=== PATIENT | female | born 1970 | race Caucasian/White ===

== ENCOUNTER 2016-11-26 11:41 | Emergency (ER) | payer SELFPAY ==
[2016-11-26] MEDS ORDERED: METOPROLOL 5 MG/5 ML VIAL IVP STA (12:18)
== END 2016-11-26 14:23 | disposition home or self-care (01) ==
DX: R00.0 Tachycardia, unspecified (principal); R23.2 Flushing; D72.819 Decreased white blood cell count, unspecified; R03.0 Elevated blood-pressure reading, without diagnosis of hypertension; F17.200 Nicotine dependence, unspecified, uncomplicated

== ENCOUNTER 2016-12-16 12:34 | Emergency (ER) | payer MEDICAID ==
[2016-12-16] MEDS ORDERED: POTASSIUM BICARB 25 MEQ TABLET PO STA (16:04)
[2016-12-16] MEDS ORDERED: POTASSIUM BICARB 25 MEQ TABLET PO ONE (16:07)
== END 2016-12-16 16:14 | disposition home or self-care (01) ==
DX: R20.2 Paresthesia of skin (principal); F17.200 Nicotine dependence, unspecified, uncomplicated
CPT/HCPCS: 36415; 70551; 80053; 80306; 81003; 83690; 83735; 83880; 84484; 85025; 93005; 93010; 99283; 99284; A9270

== ENCOUNTER 2017-01-01 22:08 | Emergency (ER) | payer MEDICAID | END 2017-01-01 23:00 | disposition left against medical advice (07) | DX: Z53.21 Procedure and treatment not carried out due to patient leaving prior to being seen by health care provider (principal) ==

== ENCOUNTER 2017-05-16 15:53 | Outpatient (CLI) | payer MEDICAID ==
--- NOTE | 2017-05-18 17:03 | Mammography Report ---
DIGITAL SCREENING MAMMOGRAM: 05/16/2017 CLINICAL INDICATION: A 47-year-old for baseline. TECHNIQUE: Routine CC and MLO projections were obtained of the breasts as well as bilateral laterall y exaggerated craniocaudal views. FINDINGS: The breasts demonstrate heterogeneously dense fibroglandular parenchyma bilaterally. No s uspicious masses, clustered microcalcifications, or regions of architectural distortion are identifie d. IMPRESSION: NEGATIVE EXAMINATION. RECOMMENDATION: Routine annual screening unless otherwise clinically indicated. BI-RADS category 1, negative. STANDARD QUALIFYING STATEMENTS 1. This examination was reviewed with the aid of Computer-Aided Detection (CAD). 2. A negative or benign imaging report should not delay biopsy if clinically suspicious findings are present. Consider surgical consultation if warranted. More than 5% of cancers are not identified by i maging. 3. Dense breasts may obscure an underlying neoplasm. JOB #: [id number] EXT JOB #:[id number]
== END 2017-05-16 15:54 | disposition home or self-care (01) ==
LOC: DI.S 15:53
PROVIDERS: ATTEND Nurse Practitioner Family
DX: Z12.31 Encounter for screening mammogram for malignant neoplasm of breast (principal)
CPT/HCPCS: 77067

== ENCOUNTER 2017-05-19 22:13 | Emergency (ER) | payer MEDICAID ==
[2017-05-19 22:37] VITALS: BP 124/82
--- NOTE | 2017-05-19 22:43 | ED Physician Documentation ---
PD HPI MHE - Stated complaint Stated Complaint: MHE - Chief complaint Chief Complaint: MHE - History obtained from History obtained from: Patient - History of Present Illness Primary symptom: Anxiety, Other (alcohol and extra med use this evening). No: Suicidal ideation, Suicide attempt Timing - onset: How many months ago (3-4 months of anxiety, depression, poor sleep, weight loss/poor appetite, and increasing intermittent alcohol use. Denies drug use. She had been to PMD recently, with new meds Rx in the past couple of months. Had labs done and was found to have some elevation of AST/ ALT. PCP called her and asked her to come to office for further labs to evaluate for Hepatitis. Patient got very anxious about that today. She took couple of meds for anxiety that are Rx for her, and also had some alcohol. Family concerned about the interaction of meds and alcohol. Patient did not make any suicidal statements.) Contributing factors: Money, Other (health). No: Substance abuse - drugs Similar symptoms before: Has not had sx before (her mother says there had not been any depresssion/MH problems in the past until just about 3-4 months ago, then with dperession/anxiety, poor appetite, poor sleep, weight loss. Has been to PCP and gotten Rx for antianxiety/antidepressant. Patient is not feeling improved with those.) Recently seen: Clinic Review of Systems Constitutional: denies: Fever, Chills Nose: denies: Rhinorrhea / runny nose, Congestion Throat: denies: Sore throat Cardiac: denies: Chest pain / pressure, Palpitations Respiratory: denies: Dyspnea, Cough GI: denies: Abdominal Pain, Vomiting, Diarrhea, Bloody / black stool : denies: Dysuria, Frequency, Discharge Neurologic: denies: Generalized weakness, Near syncope Endocrine: reports: Weight loss (the past 3-4 months) Immunocompromised: denies: Immunocompromised PD PAST MEDICAL HISTORY - Past Medical History Cardiovascular: None Respiratory: None Neuro: None Endocrine/Autoimmune: None 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: None : None Psych: Anxiety - Past Surgical History Past Surgical History: No - Present Medications Home Medications: Ambulatory Orders Medication Instructions Recorded Confirmed No Known Home Medications [No 11/26/16 01/01/17 Known Home Medications] - Allergies Allergies/Adverse Reactions: Allergies Allergy/AdvReac Type Severity Reaction Status Date / Time No Known Drug Allergies Allergy Verified 05/19/17 22:37 - Living Situation Living Situation: reports: With family Living Arrangement: reports: At home - Social History Does the pt smoke?: Yes Smoking Status: Current every day smoker Does the pt drink ETOH?: Yes Does the pt have substance abuse?: No - Immunizations Immunizations are current?: Yes Immunizations: TDAP current <10years - POLST Patient has POLST: No PD ED PE NORMAL - Vitals Vital signs reviewed: Yes - General General: Alert and oriented X 3, Well developed/nourished, Other (smell of alchol on breath. Able to talk clearly, ambulatory without ataxia. Somewhat loud talking. ) - HEENT HEENT: Atraumatic, Pharynx benign - Neck Neck: Supple, no meningeal sign, No adenopathy - Cardiac Cardiac: RRR, No murmur - Abdomen Abdomen: Soft, Non tender - Back Back: No CVA TTP - Derm Derm: Normal color, Warm and dry - Extremities Extremities: No deformity, No tenderness to palpate, Normal ROM s pain, No edema - Neuro Neuro: Alert and oriented X 3, No motor deficit, No sensory deficit, Normal speech - Psych Psych: No: Normal affect (somewhat anxious) Results - Vitals Vitals: Vital Signs - 24 hr 05/19/17 22:33 Temperature 36.4 C L Heart Rate 77 Respiratory 16 Rate Blood Pressure 124/82 H O2 Saturation 99 Oxygen O2 Source Room air - Labs Labs: Laboratory Tests 05/19/17 05/19/17 05/20/17 00:00 00:00 00:00 Total Bilirubin 0.4 Direct Bilirubin 0.1 AST 33 ALT 25 Alkaline Phosphatase 77 Total Protein 7.6 Albumin 4.3 Globulin 3.3 TSH 1.29 Ethyl Alcohol 220.8 PD MEDICAL DECISION MAKING - ED course Complexity details: reviewed results, re-evaluated patient (Patient is not suicidal. States she drank and took her antianxiety med to feel less anxious. Though intoxicated, I feel she is able to converse and interact well, understands suggested follow up. She says she will not drink further overnight. She was offered to stay overnight and talk with SW. She stayed for awhile and slept, but then awoke and wanted to go home. Family still with her and brought her home. ), considered differential, d/w patient, d/w family (her mother and daughter are concerned about "physical/ medical" cause of anxiety and weight loss. Has had some basic labs through office. I can check some other labs regarding depression-mimics. Though I told her mother who is present in room, that these are often not the cause for symptoms as hers, most often psychological. Suggest counseling, which her PCP has been encouraging her to do as well. ) Departure - Departure Disposition: 01 Home, Self Care Clinical Impression: Depression Qualifiers: Depression Type: unspecified Qualified Code(s): F32.9 - Major depressive disorder, single episode, unspecified Alcoholic intoxication Qualifiers: Complication of substance-induced condition: uncomplicated Qualified Code(s): F10.120 - Alcohol abuse with intoxication, uncomplicated Condition: Stable Record reviewed to determine appropriate education?: Yes Instructions: ED Depression Follow-Up: Pilar Coker ARNP [Primary Care Provider] - [facility] [Provider Group] Comments: Had given verbal instruction to family to have patient follow up with PMD regarding lab tests done today (several of which will take 2-3 days for results) . Follow up for counseling as well. This sounds like depression symptoms. Discharge Date/Time: 05/20/17 03:10
[2017-05-20] MEDS ORDERED: NICOTINE 14 MG PATCH TOP ONE (00:22)
[2017-05-20] MEDS ORDERED: NICOTINE 14 MG PATCH TOP STA (00:23)
[2017-05-20 00:39] LABS: BILIRUBIN,DIRECT 0.1 mg/dL (0.1-0.5); BILIRUBIN,TOTAL 0.4 mg/dL (0.2-1.0); TOTAL PROTEIN 7.6 g/dL (6.7-8.2)
[2017-05-23 09:46] LABS: LEAD (B) COLLECTION SAMPLE VENOUS (())
== END 2017-05-20 03:10 | disposition home or self-care (01) ==
LOC: ED 22:13
DX: F32.9 Major depressive disorder, single episode, unspecified (principal); F10.129 Alcohol abuse with intoxication, unspecified; F17.200 Nicotine dependence, unspecified, uncomplicated
CPT/HCPCS: 36415; 80074; 80076; 80320; 82306; 83655; 84443; 99282; 99283; A9270; 82175; 83825

== ENCOUNTER 2017-06-20 15:10 | Outpatient (CLI) | payer MEDICAID | END 2017-06-20 15:11 | disposition home or self-care (01) | LOC: RT.S 15:10 | PROVIDERS: ATTEND Nurse Practitioner Family | DX: I10 Essential (primary) hypertension (principal) | CPT/HCPCS: 93005 ==

== ENCOUNTER 2017-06-27 15:49 | Emergency (ER) | payer MEDICAID ==
[2017-06-27] MEDS ORDERED: cloNIDine 0.1 MG TABLET PO STA (16:10)
[2017-06-27] MEDS ORDERED: LORazepam 0.5 MG TABLET PO STA (16:10)
[2017-06-27] MEDS ORDERED: LORazepam 0.5 MG TABLET ONE (16:25)
[2017-06-27] MEDS ORDERED: cloNIDine 0.1 MG TABLET ONE (16:25)
--- NOTE | 2017-06-27 16:29 | ED Physician Documentation ---
History of Present Illness - Stated complaint Stated Complaint: HIGH BLOOD PRESSURE - Chief complaint Chief Complaint: General - Additonal information Additional information: hx from pt 47 female hx HTN and anxiety has also been seen in our ER for fast heart rate and L sided numbness today felt like her BP was high - she states she had left sided face arm leg numbness, onset this AM - so she checked her BP and it was indeed high - so she went to her PMD who advised her to dc her clonidine and take lisinopril sx persist : L sided numbnes, no focal weakness, no CAMERON or neck pain, burnign chest pain "like a menthol rub", no back or abd pain, no dyspnea, no leg swelling denies preg LMP now + smoker prior tox screens + for benzo and opiates, no stimulants Review of Systems Constitutional: denies: Fever, Chills Eyes: denies: Loss of vision Ears: denies: Loss of hearing Cardiac: reports: Chest pain / pressure, Palpitations Respiratory: denies: Dyspnea, Cough GI: denies: Abdominal Pain, Nausea, Vomiting Musculoskeletal: denies: Neck pain, Back pain Neurologic: reports: Numbness (L face arm leg). 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 : None Psych: Anxiety - Past Surgical History Past Surgical History: No - Present Medications Home Medications: Ambulatory Orders Medication Instructions Recorded Confirmed Baclofen 20 mg PO DAILY 06/27/17 06/27/17 Bupropion HCl [Zyban] 150 mg PO DAILY 06/27/17 06/27/17 Buspirone HCl 7.5 mg PO DAILY 06/27/17 06/27/17 Hydroxyzine HCl 50 mg PO DAILY 06/27/17 06/27/17 Lisinopril 20 mg PO DAILY 06/27/17 06/27/17 cloNIDine [Catapres] 0.1 mg PO DAILY 06/27/17 06/27/17 - Allergies Allergies/Adverse Reactions: Allergies Allergy/AdvReac Type Severity Reaction Status Date / Time No Known Drug Allergies Allergy Verified 05/19/17 22:37 - Social History Does the pt smoke?: Yes Smoking Status: Current every day smoker Does the pt drink ETOH?: Yes Does the pt have substance abuse?: No - Immunizations Immunizations are current?: Yes Immunizations: TDAP current <10years - POLST Patient has POLST: No PD ED PE NORMAL - Vitals Vital signs reviewed: Yes - General General: Alert and oriented X 3, Other (anxious, poor eye contact) - HEENT HEENT: PERRL, EOMI - Neck Neck: No bony TTP - Cardiac Cardiac: No: RRR (tachy, no murmur noted) - Respiratory Respiratory: No respiratory distress, Clear bilaterally - Abdomen Abdomen: Soft, Non tender - Derm Derm: Normal color - Extremities Extremities: Normal ROM s pain, No edema, No calf tenderness / cord - Neuro Neuro: Alert and oriented X 3, No motor deficit, Normal speech, Other (mild left sided face arm and leg numbness, + tremor which pt states is nl for her and the reasons she takes clonidine). 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 2-12 intact, No sensory deficit Results - Vitals Vitals: Vital Signs - 24 hr 06/27/17 06/27/17 06/27/17 15:51 16:47 17:09 Temperature 36.8 C Heart Rate 128 H 91 69 Respiratory 18 18 Rate Blood Pressure 179/95 H 162/97 H O2 Saturation 100 100 97 06/27/17 06/27/17 17:27 18:09 Temperature Heart Rate 77 Respiratory Rate Blood Pressure 129/99 H 141/93 H O2 Saturation 98 Oxygen O2 Source Room air - EKG (time done) 1630 Rate: Rate (enter#) (91) Rhythm: NSR Salyer: Normal Intervals: Normal TX Ischemia: Normal ST segments - Labs Labs: Laboratory Tests 06/27/17 06/27/17 06/27/17 16:29 16:29 16:29 WBC 8.6 RBC 4.54 Hgb 14.6 Hct 42.8 MCV 94.2 MCH 32.2 H MCHC 34.1 RDW 12.5 Plt Count 277 MPV 7.6 L Neut # 6.4 Lymph # 1.6 Bureau # 0.4 Eos # 0.1 Baso # 0.1 Absolute Nucleated RBC 0.00 Nucleated RBCs 0.0 D-Dimer Sodium 138 Potassium 3.7 Chloride 105 Carbon Dioxide 24 Anion Gap 9.0 BUN 22 H Creatinine 1.1 H Estimated GFR (MDRD) 53 L Glucose 125 H Calcium 9.2 Troponin I < 0.04 Serum HCG, Qual 06/27/17 06/27/17 16:29 16:29 WBC RBC Hgb Hct MCV MCH MCHC RDW Plt Count MPV Neut # Lymph # Bureau # Eos # Baso # Absolute Nucleated RBC Nucleated RBCs D-Dimer < 200.0 L Sodium Potassium Chloride Carbon Dioxide Anion Gap BUN Creatinine Estimated GFR (MDRD) Glucose Calcium Troponin I Serum HCG, Qual NEGATIVE PD MEDICAL DECISION MAKING - ED course ED course: pt reports recent labs and echo - reviewed old records in EMR - no echo found so must have been done elsewhere, last labs December 2016, also had MRI brain for similar left sided numbness last spring and it was neg HR noted - pt afebrile, no infectious symptoms on hx nor signs of infection on exam, pt extremely anxious, HR dropped without any intervention aside from ativan - TSH within the year was nl - feel likely 2/2 anxiety and do not think needs to be pursued further at this time pt had burning chest pain "like a menthol rub" neg EKG neg trop neg d dimer no fever cough to suggest pna pain is not severe, not sharp, no radiation to back - and not new (per EMR pt seen in december for CP and it had been going on for months already at that time) - doubt dissection - and do not think more radiation from another CT (in addition to head CT I already obtained and ayesha with a GFR of 53) is needed for those reasons and she had L sided numbness all day - hx same with high BP many times in the past and has been worked up for same including MRI - did get a CTH today given L sided numbness - no acute process - sx are subacute having been present all day so ischemia would likely show on CT by now and - and pt also reports hx of same sx many many time when her BP runs high - had a neg MRI last spring for same sx - do not feel admit for further imaging etc is needed all sx seem to directly related to pts BP and/or anxiety she is feelign better now, BP down, CP better, numbness still present but diminished, discussed results with pt and plan to dc on her new lisinopril 20mgQD as well as continuing the clonidine 0.1 mg BID as prescribed and her other meds, she is comfortable with this plan Departure - Departure Disposition: Home, Self Care Clinical Impression: Paresthesia Hypertension Qualifiers: Hypertension type: unspecified Qualified Code(s): I10 - Essential (primary) hypertension Chest pain Qualifiers: Chest pain type: unspecified Qualified Code(s): R07.9 - Chest pain, unspecified Condition: Good Instructions: ED Chest Pain Atypical Unkn Cause, ED Hypertension Conf Out Of Control, ED Paraesthesias Follow-Up: Pilar Coker ARNP [Primary Care Provider] - Comments: Your test results are all reassuring as we discussed. It seems like most of your symptoms are due to either your blood pressure being up or anxiety The symptoms are improving with blood pressure and anxiety medications At this point I think it is safe to let you go home to continue your new lisinopril as well as the previously prescribed clonidine and your other medications. Please follow up with your PMD before the weekend to get your blood pressure rechecked and see how you are doing And return to the ER for new or worsening symptoms NIHSS - Time Time: 16:15 - Level of Consciousness Level of consciousness: (0) Alert, Keenly responsive LOC Questions: (0) Answers both Q's correct LOC Commands: (0) Performs both correctly - Gaze Best Gaze: (0) Normal - Visual Visual: (0) No loss - Facial Palsy Facial Palsy: (0) Normal, symmetrical movement - Motor Arms (both separate) Motor Arm (right): (0) No drift Motor Arm (left): (0) No drift - Motor Legs (both separate) Motor Leg (right): (0) No drift Motor Leg (left): (0) No drift - Sensory Sensory: (1) [id number] loss - Best Language Best Language: (0) No aphasia - Dysarthria Dysarthria: (0) Normal - Extinction and Inattention (formally neg Extinction and inattention: (0) No abnormality
[2017-06-27 16:37] LABS: BASOPHILS # (AUTO) 0.1 10^3/uL (0.0-0.1); BASOPHILS % (AUTO) 0.7 %; EOSINOPHILS # (AUTO) 0.1 10^3/uL (0.0-0.7); EOSINOPHILS % (AUTO) 1.4 %; HCT - HEMATOCRIT 42.8 % (37.0-47.0); HGB - HEMOGLOBIN 14.6 g/dL (12.0-16.0); LYMPHOCYTES # (AUTO) 1.6 10^3/uL (1.5-3.5); LYMPHOCYTES % (AUTO) 18.5 %; MEAN CORPUSCULAR HEMOGLOBIN 32.2 pg (27.0-31.0); MEAN CORPUSCULAR HGB CONC 34.1 g/dL (32.0-36.0); MEAN CORPUSCULAR VOLUME 94.2 fL (81.0-99.0); MEAN PLATELET VOLUME 7.6 fL (7.9-10.8); MONOCYTES # (AUTO) 0.4 10^3/uL (0.0-1.0); MONOCYTES % (AUTO) 4.8 %; NEUTROPHILS # (AUTO) 6.4 10^3/uL (1.5-6.6); NEUTROPHILS % (AUTO) 74.6 %; RED BLOOD COUNT 4.54 10^6/uL (4.20-5.40); RED CELL DISTRIBUTION WIDTH 12.5 % (12.0-15.0); UNCORRECTED WHITE BLOOD COUNT 8.6 x10^3/uL; WHITE BLOOD COUNT 8.6 x10^3/uL (4.8-10.8)
[2017-06-27 16:46] LABS: CALCIUM 9.2 mg/dL (8.5-10.3); CREATININE 1.1 mg/dL (0.4-1.0); POTASSIUM 3.7 mmol/L (3.5-5.0)
[2017-06-27] MEDS ORDERED: SODIUM CHLORIDE 0.9% 1,000 ML IV ONE (16:56)
--- NOTE | 2017-06-27 17:53 | CT Preliminary Report ---
Exam: CT Head W/O IMPRESSION: No acute or focal intracranial abnormality seen. [facility] SITE ID: [id number]
--- NOTE | 2017-06-27 17:55 | CT Report ---
EXAM: CT HEAD EXAM DATE: 06/27/2017 05:09 PM. CLINICAL HISTORY: Hypertension, left sided numbness, outside TPA window. COMPARISON: MR brain 12/16/2016. Head CT 10/20/2014. TECHNIQUE: Multiaxial CT images were obtained from the foramen magnum to the vertex. IV contrast: Non e. Reformats: Coronal. In accordance with CT protocol optimization, one or more of the following dose reduction techniques w ere utilized for this exam: automated exposure control, adjustment of mA and/or KV based on patient s ize, or use of iterative reconstructive technique. FINDINGS: Parenchyma: No intraparenchymal hemorrhage. No evidence of mass, midline shift, or CT findings of inf arction. Fan-white differentiation is distinct. Extraaxial Spaces: Normal for age. No subdural or epidural collections identified. Ventricles: Normal in size and position. Sinuses: Moderate mucosal thickening at the right sphenoid sinus. Bones: No evidence of fracture or calvarial defect. Other: None. IMPRESSION: No acute or focal intracranial abnormality seen. [facility] Referring Provider Line: [phone] SITE ID: [id number]
[2017-06-27 18:09] VITALS: BP 141/93
== END 2017-06-27 18:41 | disposition home or self-care (01) ==
LOC: ED 15:49
DX: R20.0 Anesthesia of skin (principal); I10 Essential (primary) hypertension; R07.9 Chest pain, unspecified; F17.209 Nicotine dependence, unspecified, with unspecified nicotine-induced disorders
CPT/HCPCS: 36415; 70450; 80048; 84484; 84703; 85025; 85379; 93005; 99283; 99284; A9270

== ENCOUNTER 2017-08-13 11:39 | Emergency (ER) | payer MEDICAID ==
[2017-08-13] MEDS ORDERED: BUPIVACAINE 0.5% PF 30 ML VIAL SUBQ STA (12:06)
[2017-08-13] MEDS ORDERED: LIDOCAINE 2%-EPI 1:100000 20 ML MDV ONE (12:11)
[2017-08-13] MEDS ORDERED: BUPIVACAINE 0.5% PF 30 ML VIAL ONE (12:16)
--- NOTE | 2017-08-13 13:06 | ED Physician Documentation ---
History of Present Illness - Stated complaint Stated Complaint: CHEST LAC - Chief complaint Chief Complaint: Laceration - Additonal information Additional information: hx from pt 47 f healthy long hx MHE and cutting many many scars from prior self inflicted cutting last night about 11 PM self inflicted lacs to breast abd and groin states she was not trying to kill herself states she was not assaulted states that is just what she does tdap UTD Review of Systems Skin: reports: Laceration (s) Psychiatric: denies: Suicidal Immunocompromised: denies: Immunocompromised PD PAST MEDICAL HISTORY - Past Medical History Past Medical History: Yes Cardiovascular: None, Hypertension Respiratory: None Neuro: None Endocrine/Autoimmune: None 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 : None Psych: Anxiety - Past Surgical History Past Surgical History: No - Present Medications Home Medications: Ambulatory Orders Medication Instructions Recorded Confirmed cloNIDine [Catapres] 0.1 mg PO DAILY 06/27/17 08/13/17 hydrOXYzine HCl [Hydroxyzine HCl] 50 mg PO DAILY 06/27/17 08/13/17 Metoprolol Tartrate [Lopressor] 50 mg PO DAILY 08/13/17 08/13/17 Sertraline [Zoloft] 50 mg PO DAILY 08/13/17 08/13/17 - Allergies Allergies/Adverse Reactions: Allergies Allergy/AdvReac Type Severity Reaction Status Date / Time No Known Drug Allergies Allergy Verified 08/13/17 11:59 - Social History Does the pt smoke?: Yes Smoking Status: Current every day smoker Does the pt drink ETOH?: Yes Does the pt have substance abuse?: No - Immunizations Immunizations are current?: Yes Immunizations: TDAP current <10years - POLST Patient has POLST: No PD ED PE NORMAL - Vitals Vital signs reviewed: Yes - Cardiac Cardiac: RRR - Respiratory Respiratory: No respiratory distress, Clear bilaterally - Abdomen Abdomen: Soft - Derm Derm: Other (numerous lacs > 20, two large deep lacs one running the length of each breast - approx 10 and 8 cm resptively, also approx 5 cm lac to each ingiunal region, left deeper than right but both superficial not needing sutures , rest and more abrasions to abd and arms) - Psych Psych: Other (denies SI) Results - Vitals Vitals: Vital Signs - 24 hr 08/13/17 11:49 Temperature 35.9 C L Respiratory 14 Rate Blood Pressure 140/92 H O2 Saturation 100 Oxygen O2 Source Room air Procedures - Laceration (location) R breast Length in cm: 10 Wound type: Linear Neurovascular status: Sensory intact, Motor intact Anesthesia: OTH (pt refused analgesia) Wound Preparation: Irrigated copiously NS (by tech) Skin layer closure: Nylon, Size #-0 - enter number (5), Sutures - enter # (9), Other (sutured lossely given delayed closure) Other: Patient tolerated well, No complications, Neurovascular intact, Tetanus UTD Complexity: Simple L breast Length in cm: 8 Wound type: Linear Neurovascular status: Sensory intact, Motor intact Anesthesia: OTH (pt declined analgesia) Wound Preparation: Irrigated copiously NS (tech) Skin layer closure: Nylon, Interrupted, Size #-0 - enter number (5), Sutures - enter # (7) Other: Patient tolerated well, No complications, Neurovascular intact, Tetanus UTD Complexity: Simple PD MEDICAL DECISION MAKING - ED course ED course: pt refused blood and urine spoke with VAISHALI Leroy who agrees pt not suicidal pt just wants breasts sutures explained this is a delayed closure and risk for infection but wounds so deep and gaping feel some suturing needed, inguinal are very superficial and ayesha given time delay do not think suturing will be beneficial Departure - Departure Disposition: 01 Home, Self Care Clinical Impression: Laceration, Deliberate self-cutting Condition: Good Instructions: ED Laceration All Comments: Because these wounds were addressed more than 12 hours after the injury, they are increased risk of infection and scarring We washed the wounds carefully and sutured loosely to help minimize the risk of infection Please watch very carefully for any redness swelling discharge fever etc and return for any concerns Otherwise please wash all wounds with soap and water and apply antibiotic ointment twice a day Sutures out in 7 days Also please follow up with your PMD about your blood pressure - it was high today
[2017-08-13] MEDS ORDERED: BACITRACIN OINT TOP ONE (13:08)
[2017-08-13 13:49] VITALS: BP 110/66
== END 2017-08-13 13:48 | disposition home or self-care (01) ==
LOC: ED 11:39
DX: S21.012A Laceration without foreign body of left breast, initial encounter (principal); S21.011A Laceration without foreign body of right breast, initial encounter; S31.114A Laceration without foreign body of abdominal wall, left lower quadrant without penetration into peritoneal cavity, initial encounter; S31.113A Laceration without foreign body of abdominal wall, right lower quadrant without penetration into peritoneal cavity, initial encounter; S30.811A Abrasion of abdominal wall, initial encounter; S40.812A Abrasion of left upper arm, initial encounter; S40.811A Abrasion of right upper arm, initial encounter; X78.1XXA Intentional self-harm by knife, initial encounter; I10 Essential (primary) hypertension; F17.200 Nicotine dependence, unspecified, uncomplicated
CPT/HCPCS: 12005; 99283; A9270; 80053; 80307; 80320; 80329; 83690; 84443; 85025

== ENCOUNTER 2018-04-30 15:44 | Outpatient (CLI) | payer MEDICAID, OTHER ==
--- NOTE | 2018-05-01 09:01 | XRAY Report ---
Procedure Date: 04/30/2018 Accession Number: [id number] / [id number] Procedure: XR - Hand 2 View BILAT CPT Code: FULL RESULT: EXAM: Hand 2 View BILAT DATE: 04/30/2018 4:15 PM CLINICAL HISTORY: OTHER RETAINED FOREIGN BODY FRAGMENTS COMPARISON: None. TECHNIQUE: 3 views each hand. FINDINGS: RIGHT: Bones: Normal. No fractures or bone lesions. Joints: Normal. No subluxations. Soft Tissues: Normal. No soft tissue swelling. No radiopaque foreign body. LEFT: Bones: Normal. No fractures or bone lesions. Joints: Normal. No subluxations. Soft Tissues: Normal. No soft tissue swelling. No radiopaque foreign body. IMPRESSION: No radiopaque foreign body is detected in either hand. No fracture or dislocation. [facility]
== END 2018-04-30 15:45 | disposition home or self-care (01) ==
LOC: DI 15:44
PROVIDERS: ATTEND Nurse Practitioner Gerontology
DX: M79.642 Pain in left hand (principal); M79.644 Pain in right finger(s)

== ENCOUNTER 2018-05-03 15:43 | Emergency (ER) | payer MEDICAID, OTHER ==
[2018-05-03 15:53] VITALS: BP 133/90
--- NOTE | 2018-05-03 17:19 | ED Physician Documentation ---
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 : None Psych: Anxiety - Past Surgical History Past Surgical History: No - Allergies Allergies/Adverse Reactions: Allergies Allergy/AdvReac Type Severity Reaction Status Date / Time No Known Drug Allergies Allergy Verified 08/13/17 11:59 - Social History Does the pt smoke?: Yes Smoking Status: Current every day smoker Does the pt drink ETOH?: Yes Does the pt have substance abuse?: No - Immunizations Immunizations are current?: Yes Immunizations: TDAP current <10years - POLST Patient has POLST: No Results - Vitals Vitals: Vital Signs - 24 hr 05/03/18 15:50 Temperature 36.5 C Heart Rate 78 Respiratory 18 Rate Blood Pressure 133/90 H O2 Saturation 100 Oxygen O2 Source Room air PD MEDICAL DECISION MAKING - ED course ED course: pt posted up in room 12 but not in room when I went to see her per nurse not in lobby when called xray report reviewed - no fx or FB - Sepsis Event Vital Signs: Vital Signs - 24 hr 05/03/18 15:50 Temperature 36.5 C Heart Rate 78 Respiratory 18 Rate Blood Pressure 133/90 H O2 Saturation 100 Oxygen O2 Source Room air Departure - Departure Disposition: ED Left Without Being Seen Discharge Date/Time: 05/03/18 17:07
== END 2018-05-03 17:07 | disposition left against medical advice (07) ==
LOC: ED 15:43
DX: Z53.21 Procedure and treatment not carried out due to patient leaving prior to being seen by health care provider (principal)
CPT/HCPCS: 99281

== ENCOUNTER 2020-04-22 16:15 | Outpatient (CLI) | payer MEDICAID, OTHER | END 2020-04-22 23:59 | disposition home or self-care (01) | LOC: LAB.WCP 16:15 | PROVIDERS: ATTEND Nurse Practitioner | DX: R06.02 Shortness of breath (principal); Z20.828 Contact with and (suspected) exposure to other viral communicable diseases | CPT/HCPCS: 81599 ==

== ENCOUNTER 2020-04-28 09:45 | Outpatient (CLI) | payer MEDICAID, OTHER ==
[2020-04-28 10:14] LABS: BASOPHILS % (AUTO) 0.7 %; EOSINOPHILS # (AUTO) 0.2 10^3/uL (0.0-0.7); EOSINOPHILS % (AUTO) 3.7 %; HGB - HEMOGLOBIN 14.4 g/dL (12.0-16.0); LYMPHOCYTES # (AUTO) 2.1 10^3/uL (1.5-3.5); LYMPHOCYTES % (AUTO) 35.7 %; MEAN CORPUSCULAR HEMOGLOBIN 31.4 pg (27.0-31.0); MEAN CORPUSCULAR HGB CONC 32.7 g/dL (32.0-36.0); MEAN CORPUSCULAR VOLUME 96.1 fL (81.0-99.0); MEAN PLATELET VOLUME 9.2 fL (7.9-10.8); MONOCYTES # (AUTO) 0.4 10^3/uL (0.0-1.0); MONOCYTES % (AUTO) 6.7 %; NEUTROPHILS # (AUTO) 3.2 10^3/uL (1.5-6.6); PLT - PLATELET COUNT 337 10^3/uL (130-450); RED BLOOD COUNT 4.58 10^6/uL (4.20-5.40); RED CELL DISTRIBUTION WIDTH 12.6 % (12.0-15.0)
[2020-04-28 10:35] LABS: ALBUMIN 4.4 g/dL (3.2-5.5); ALBUMIN/GLOBULIN RATIO 1.7 (1.0-2.2); ALKALINE PHOSPHATASE 63 IU/L (42-121); ALT ALANINE AMINOTRANSFERASE 26 IU/L (10-60); AST ASPARTATE AMINOTRANSFERASE 30 IU/L (10-42); BILIRUBIN,TOTAL 0.8 mg/dL (0.2-1.0); BUN - BLOOD UREA NITROGEN 17 mg/dL (6-20); CARBON DIOXIDE - CO2 29 mmol/L (21-32); CHLORIDE 101 mmol/L (101-111); CHOL/HDL RATIO 2.8 (<4.4); CHOLESTEROL 232 mg/dL; GLUCOSE 109 mg/dL (70-100); HDL CHOLESTEROL 83 mg/dL; LDL CHOLESTEROL,CALCULATED 133 mg/dL; LDL/HDL RATIO 1.6 (<4.4); SODIUM 138 mmol/L (135-145); VLDL CHOLESTEROL 16 mg/dL
--- NOTE | 2020-04-28 13:58 | XRAY Report ---
PROCEDURE: Chest 2 View X-Ray INDICATIONS: LAB DRAW,SHORTNESS OF BREATH,TOBACCO USE TECHNIQUE: 2 view(s) of the chest. COMPARISON: Chest x-ray 11/21/2015 FINDINGS: Surgical changes and devices: None. Lungs and pleura: No pleural effusions or pneumothorax. Lungs are clear. Mediastinum: Mediastinal contours are normal. Heart size is normal. Bones and chest wall: No suspicious bony abnormalities. Soft tissues appear unremarkable. IMPRESSION: No acute pulmonary process. Reviewed by: Kaitlyn Mccoy MD on 04/28/2020 1:57 PM PDT Approved by: Kaitlyn Mccoy MD on 04/28/2020 1:57 PM PDT Station ID: [id number]
[2020-04-29 12:01] LABS: HEPATITIS C ANTIBODY NON-REACTIVE (NON-REACTIVE)
== END 2020-04-28 09:46 | disposition home or self-care (01) ==
LOC: LAB 09:45 → DI 09:46
PROVIDERS: ATTEND Nurse Practitioner
DX: R06.02 Shortness of breath (principal); I10 Essential (primary) hypertension; F32.9 Major depressive disorder, single episode, unspecified; R94.5 Abnormal results of liver function studies; F41.9 Anxiety disorder, unspecified; Z72.0 Tobacco use; F10.10 Alcohol abuse, uncomplicated; G60.9 Hereditary and idiopathic neuropathy, unspecified; Z20.2 Contact with and (suspected) exposure to infections with a predominantly sexual mode of transmission
CPT/HCPCS: 36415; 71046; 80050; 80061; 82607; 83721; 86704; 86803